=== PATIENT | female | born 1990 | race Caucasian/White ===

== ENCOUNTER 2023-08-22 09:51 | Outpatient (CLI) | payer BC, SELFPAY ==
--- NOTE | ~2023-08-22 | US_ITS ---
LIMITED AND MATERNAL ULTRASOUND (Doppler ultrasound interrogation techniques used as needed for this exam.) Ordering provider: Yanira Lockhart MD History: . ENCOUTNER FOR SCREENING . Comparison: None. FINDINGS: : . Single live fetus. presentation: Vertex.. Longitudinal lie Placenta: Anterior Previa: No. BIOMETRICS: BPD: 46.4 mm for an estimated gestational age of 20 weeks. HC: 1721.7 mm for an estimated gestational age of 19 weeks 5 days. AC: 146.9 mm for an estimated gestational age of 20 weeks. FL: 31.2 mm for an estimated gestational age of 19 weeks and 5 days. Single intrauterine fetus with heart rate measured at 139 bmp which is within normal limits. Limited evaluation of anatomy shows no gross abnormality. The structures visualized were as follows: Stomach, kidneys, bladder, four chamber heart. Overall average gestational age based on biometrics is 19 weeks and 6 days with an estimated date of confinement of January 10, 2024 Extrapolated weight is 11 ounces based on estimated gestational age. MACIEL is 10.46 which is within normal limits. Largest pocket is 4.7 cm. Cervical length is 3.7 cm which is within normal limits. IMPRESSION: Unremarkable limited and maternal ultrasound. Reviewed, dictated and finalized at location A.
== END 2023-08-22 09:52 | disposition home or self-care (01) ==
LOC: ANHIMG 09:58
PROVIDERS: Visit Provider Obstetrics & Gynecology
DX: Z36.9 Encounter for antenatal screening, unspecified (principal)
CPT/HCPCS: 76805